=== PATIENT | male | born 1995 | race Caucasian/White ===

== ENCOUNTER 2018-04-30 00:17 | Emergency (ER) | payer SELFPAY ==
[~2018-04-30] VITALS: Ht 152.4 cm; Wt 63.6 kg
[2018-04-30 00:30] VITALS: BP 124/84
== END 2018-04-30 02:51 | disposition left against medical advice (07) ==
LOC: EMS 00:17
DX: M25.531 Pain in right wrist (principal); Z53.21 Procedure and treatment not carried out due to patient leaving prior to being seen by health care provider

== ENCOUNTER 2018-10-10 09:46 | Emergency (ER) | payer SELFPAY ==
[~2018-10-10] VITALS: Ht 167.6 cm; Wt 77.3 kg
[2018-10-10] MEDS: PENICILLIN V POTASSIUM 500 MG TABLET PO ONE (11:10)
[2018-10-10 12:11] VITALS: BP 132/84
== END 2018-10-10 12:51 | disposition home or self-care (01) ==
LOC: EMS 09:46
DX: K04.7 Periapical abscess without sinus (principal); F12.90 Cannabis use, unspecified, uncomplicated; F15.90 Other stimulant use, unspecified, uncomplicated; F14.90 Cocaine use, unspecified, uncomplicated; F17.210 Nicotine dependence, cigarettes, uncomplicated

== ENCOUNTER 2024-01-29 06:05 | Emergency (ER) | payer OTHER ==
[~2024-01-29] VITALS: Ht 157.5 cm; Wt 90.9 kg
[2024-01-29 06:09] VITALS: BP 141/73; PULSE 115; RESP 16; TEMP 98.3
[2024-01-29] MEDS: LIDOCAINE 1% 10 ML VIAL ID ONE (06:39)
[2024-01-29] MEDS ORDERED: BUPR1TAB46 SL (07:03)
[2024-01-29] MEDS ORDERED: BUPR1TAB45 SL (07:03)
[2024-01-29] MEDS ORDERED: SULF-261 PO (07:05)
== END 2024-01-29 07:29 | disposition home or self-care (01) ==
LOC: EMS 06:06
DX: L02.412 Cutaneous abscess of left axilla (principal); F11.93 Opioid use, unspecified with withdrawal; F17.210 Nicotine dependence, cigarettes, uncomplicated; F14.90 Cocaine use, unspecified, uncomplicated; F12.90 Cannabis use, unspecified, uncomplicated; F15.90 Other stimulant use, unspecified, uncomplicated; Z90.49 Acquired absence of other specified parts of digestive tract
CPT/HCPCS: 99283; 10060; J3490